=== PATIENT | male | born 1980 | race Caucasian/White ===

== ENCOUNTER 2024-03-17 15:25 | Outpatient (AMB) | payer OTHER, SELFPAY ==
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
[2024-03-17 15:37] VITALS: BP 141/92; PULSE 100; RESP 18; TEMP 36.6; O2SAT 96; BMI 31.5
== END 2024-03-17 17:05 | disposition home or self-care (01) ==
PROVIDERS: PCP Family Medicine; Visit Provider Family Medicine
DX: I10 Essential (primary) hypertension (principal); E83.119 Hemochromatosis, unspecified; F19.11 Other psychoactive substance abuse, in remission; F41.8 Other specified anxiety disorders; R21 Rash and other nonspecific skin eruption; F17.200 Nicotine dependence, unspecified, uncomplicated; S06.0XAA Concussion with loss of consciousness status unknown, initial encounter; V89.2XXA Person injured in unspecified motor-vehicle accident, traffic, initial encounter

== ENCOUNTER → 2024-03-17 15:25 | Outpatient (BNVA) | payer OTHER, SELFPAY | PROVIDERS: PCP Family Medicine; Visit Provider Family Medicine | DX: I10 Essential (primary) hypertension (principal); E83.119 Hemochromatosis, unspecified; F41.8 Other specified anxiety disorders; F19.11 Other psychoactive substance abuse, in remission; F17.200 Nicotine dependence, unspecified, uncomplicated; R21 Rash and other nonspecific skin eruption; S06.0XAA Concussion with loss of consciousness status unknown, initial encounter; V89.2XXA Person injured in unspecified motor-vehicle accident, traffic, initial encounter; Y93.9 Activity, unspecified; Y92.9 Unspecified place or not applicable; Y99.9 Unspecified external cause status | CPT/HCPCS: 96127 ==

== ENCOUNTER 2024-06-01 13:43 | Outpatient (REF) | payer OTHER, SELFPAY ==
[2024-06-01 15:11] LABS: MANUAL DIFF FLAG NO
[2024-06-01 15:42] LABS: Basophils Absolute Auto 0.1 X10*3/uL (0.0-0.2); Eosinophils Absolute Auto 0.3 X10*3/uL (0.0-0.4); Eosinophils Percent Auto 4.5 % (0-4); Hemoglobin 17.3 g/dl (14.0-18.0); Imm Gran Abs Auto 0.11 X10*3/uL (0.00-0.03); Imm Gran Pct Auto 1.5 % (0.0-0.4); Lymphocytes Absolute Auto 2.9 X10*3/uL (1.2-4.9); Mean Corpuscular Hemoglobin 40.9 pg (27.0-33.0); Mean Platelet Volume 9.7 fL (9.4-12.4); Monocytes Absolute Auto 0.6 X10*3/uL (0.1-1.2); Monocytes Percent Auto 7.9 % (2-11); Neutrophils Absolute Auto 3.2 x10*3/uL (2.0-8.3); Neutrophils Percent Auto 44.1 % (45-73); Platelet Count 251 X10*3/uL (160-400); Red Blood Count 4.23 X10*6/uL (4.60-5.80); Red Cell Distribution Width 12.8 % (11.0-16.0); White Blood Count 7.2 X10*3/uL (4.8-10.8)
[2024-06-01 15:47] LABS: Mean Corpuscular Volume 113.5 fL (80.0-98.0)
[2024-06-01 16:09] LABS: Alanine Aminotransferase 210 U/L (0-40); Albumin Level 3.8 g/dL (3.5-5.0); Anion Gap 14 (12-20); Aspartate Amino Transferase 410 U/L (5-37); Blood Urea Nitrogen 4 mg/dL (9-16); Calcium 8.3 mg/dL (8.4-10.2); Carbon Dioxide 24 mmol/L (22-29); Chloride 108 mmol/L (96-108); Cholesterol 172 mg/dL (<200); Estimated Glomerular Filt Rate > 60; Glucose Fasting 96 mg/dL (60-99); HDL Cholesterol 38 mg/dL (>40); Iron 156 mcg/dL (45-160); LDL Cholesterol Calculated 94 mg/dL (<100); Percent Iron Saturation 51 % (15-50); Potassium 3.6 mmol/L (3.3-5.1); Sodium 142 mmol/L (135-145); Total Iron Binding Capacity 308 mcg/dL (228-428); Triglycerides 204 mg/dL (<150); Unsaturated Iron Binding 152 ug/dL
[2024-06-01 16:10] LABS: Estimated Average Glucose 94 mg/dL; Hemoglobin A1C 135.8722 umol/L; Hemoglobin A1c % 4.9 % (<6.0); Total Hemoglobin (HGBA1C) 4482.2053 umol/L
[2024-06-01 16:25] LABS: Prostate Specific Antigen Scr 0.24 ng/mL (<0.05-4.0)
[2024-06-01 16:29] LABS: Alkaline Phosphatase 94 U/L (39-117); Ferritin 1487 ng/mL (20-250); TSH reflex Free T4 0.76 uIU/mL (0.32-4.0)
== END 2024-06-01 13:44 | disposition home or self-care (01) ==
LOC: HO.LAB 13:43
PROVIDERS: PCP Family Medicine; Visit Provider Family Medicine
DX: Z12.5 Encounter for screening for malignant neoplasm of prostate (principal)
CPT/HCPCS: 36415; 80053; 80061; 82728; 83036; 83540; 84153; 84443; 85025

== ENCOUNTER 2024-10-21 09:22 | Outpatient (REF) | payer OTHER, SELFPAY ==
[2024-10-21 11:28] LABS: MANUAL DIFF FLAG NO
[2024-10-21 11:52] LABS: Basophils Absolute Auto 0.1 X10*3/uL (0.0-0.2); Basophils Percent Auto 1.6 % (0-2); Eosinophils Absolute Auto 0.4 X10*3/uL (0.0-0.4); Eosinophils Percent Auto 4.4 % (0-4); Hematocrit 45.6 % (42.0-52.0); Hemoglobin 16.1 g/dl (14.0-18.0); Imm Gran Abs Auto 0.13 X10*3/uL (0.00-0.03); Imm Gran Pct Auto 1.6 % (0.0-0.4); Lymphocytes Absolute Auto 2.6 X10*3/uL (1.2-4.9); Lymphocytes Percent Auto 31.6 % (20-40); Mean Corpuscular HGB Conc 35.3 g/dl (31.0-36.0); Mean Platelet Volume 9.7 fL (9.4-12.4); Monocytes Absolute Auto 0.6 X10*3/uL (0.1-1.2); Monocytes Percent Auto 7.1 % (2-11); Neutrophils Absolute Auto 4.4 x10*3/uL (2.0-8.3); Neutrophils Percent Auto 53.7 % (45-73); Platelet Count 317 X10*3/uL (160-400); Red Blood Count 4.02 X10*6/uL (4.60-5.80); Red Cell Distribution Width 14.1 % (11.0-16.0); White Blood Count 8.1 X10*3/uL (4.8-10.8)
[2024-10-21 11:55] LABS: Mean Corpuscular Volume 113.4 fL (80.0-98.0)
[2024-10-21 12:55] LABS: Ferritin 1320 ng/mL (20-250)
[2024-10-21 13:02] LABS: Anion Gap 14 (12-20)
[2024-10-21 13:06] LABS: Alanine Aminotransferase 159 U/L (0-40); Albumin Level 3.9 g/dL (3.5-5.0); Alkaline Phosphatase 100 U/L (39-117); Aspartate Amino Transferase 233 U/L (5-37); Blood Urea Nitrogen 6 mg/dL (9-16); Calcium 8.9 mg/dL (8.4-10.2); Carbon Dioxide 29 mmol/L (22-29); Chloride 106 mmol/L (96-108); Estimated Glomerular Filt Rate > 60; Glucose Fasting 102 mg/dL (60-99); Iron 214 mcg/dL (45-160); Percent Iron Saturation 66 % (15-50); Potassium 3.7 mmol/L (3.3-5.1); Sodium 145 mmol/L (135-145); Total Iron Binding Capacity 326 mcg/dL (228-428); Unsaturated Iron Binding 112 ug/dL
[2024-10-21 14:54] LABS: Appearance Urine Turbid; Color Urine Dark Yellow; Glucose Urine UA Negative (Negative); Leukocyte Esterase Urine Negative (Negative); Nitrite Urine Negative (Negative); Specific Gravity - Urine 1.015 (1.005-1.025); Urine Blood Negative (Negative); Urine Ketones Negative (Negative); Urine Protein Trace mg/dL (Neg-Trace)
[2024-10-21 16:01] LABS: Creatinine Urine 174.97 mg/dL; Microalbum/Creatinine Ratio Ur 6.2 ug/mg cr (<30)
== END 2024-10-21 09:23 | disposition home or self-care (01) ==
LOC: HO.WFDLDS 09:22
PROVIDERS: Visit Provider Family Medicine
DX: Z00.00 Encounter for general adult medical examination without abnormal findings (principal); I10 Essential (primary) hypertension; E83.119 Hemochromatosis, unspecified
CPT/HCPCS: 36415; 80053; 81003; 82043; 82570; 82728; 83540; 85025

== ENCOUNTER 2024-10-24 15:46 | Outpatient (AMB) | payer OTHER, SELFPAY ==
--- NOTE | 2024-10-24 15:57 | A.OFFPC_ITS ---
Vital Signs 10/24/24 16:01 Height 5 ft 11 in Weight 218 lb 4 oz BMI 30.4 BP 132/70 Blood Pressure Location Rt brachial Position Sitting Respiration 16 Pulse 89 Pulse Source Pulse Oximeter Temp 98.2 F Temp Source Oral Pulse Oximetry (%) 98 Oxygen Delivery Method Room Air Intake Visit Reasons: Meds review Intake Note: Patient is scheduled for med review, so patient need labs for high iron, need medication readjusted. Allergies No Known Allergies Allergy (Verified 10/24/24 16:00) Tobacco use date assessed: 10/24/24 Dental Screening Dental Screen Date: 10/24/24 Did you have a dental visit in the last 12 months?: No Did you have a dental problem in the last 6 months where you did not have access to dental care?: No Was dental information given to patient?: No HPI Meds review HPI Details 43 y/o male presents to f/u [facility]. Had started him on losartan for hypertension. BP today 132/70, 89p. Labs drawn 10/21/24. Reviewed labs with pt. RBC mildly low at 4.02. Fasting glucose 102. Ferritin level 1320 ng/mL. AST 233. ALT 159. Notes hx of R ankle strain. He notes he feels it has been tightening up at night. [facility] Social History Housing: Condominium Patient Tobacco Use Status: Former Tobacco user e-Cigarette/Vaping Use: Never Used service: No Current occupational status: employed Current occupation: speech theraipist Current occupational exposures/hazards: No Cognitive needs: No Hearing needs: No Vision needs: Yes (need vision check) Questionnaire Thrive Questionnaire Date Thrive assessed: 05/27/24 I am a: Patient What is your living situation today?: I have a steady place to live Within the past 12 months, did the food you bought not last and you didn't have the money to get more?: Never true Within the past 12 months, did you worry whether your food would run out before you got money to buy more?: Never true Do you have trouble paying for medicines?: No Do you have trouble getting transportation to medical appointments?: No Do you have trouble paying your heating and electricity bill?: No Do you have trouble taking care of your child, family member or friend?: No Do you have trouble with day-to-day activities such as bathing, preparing meals, shopping, managing finances, etc.?: No Are you currently unemployed and looking for a job?: No Are you interested in more education?: No Please select the resources that you would like help with: None THRIVE Score: 0 CAMILO-7 AMB Questionnaire CAMILO-7 Date CAMILO - 7 assessed: 03/17/24 Source: Developed by Drs. Sven Meza, Iesha Torres, Kunal Dodson and colleagues, with an educational klever from [employer]. Review of Systems Const Denies chills, Denies fatigue, Denies fever(s), Denies headache(s) and Denies weakness ENT Denies dizziness and Denies headache(s) Card Denies dyspnea Resp Denies cough, Denies dyspnea, Denies wheezing and Denies other (shortness of breath) Musc Denies numbness and Denies tingling Neuro Denies dizziness, Denies headache(s), Denies numbness, Denies tingling and Denies weakness Psych Denies anxiety and Denies depression Endo Denies fatigue Aller/Immun Denies wheezing Physical exam (Primary Care) Vital Signs: Last Vital Signs Temp 98.2 F 10/24/24 16:01 Pulse 89 10/24/24 16:01 Resp 16 10/24/24 16:01 BP 132/70 10/24/24 16:01 Pulse Ox 98 10/24/24 16:01 Oxygen Delivery Method Room Air 10/24/24 16:01 BMI result Body Mass Index 30.4 Tobacco/Smoking Status: Tobacco use Status Tobacco use date assessed 10/24/24 10/24/24 16:06 Patient Tobacco Use Status Former Tobacco user 10/24/24 16:06 e-Cigarette/Vaping Use Never Used 10/24/24 16:06 Thrive Assessment: Date of Thrive Assessment Date Thrive assessed 05/27/24 10/24/24 16:06 Const General: well developed; No acute distress Nutritional Appearance: well nourished Orientation/consciousness: patient oriented x3 HENMT Head: Yes normocephalic and Yes atraumatic Eyes General: appearance normal, both eyes and all related structures Pupils: Equal, round and reactive pupils present EOM: EOMs intact bilaterally Resp Effort & Inspection: normal respiratory effort Neuro General: patient oriented x3 and gait normal Cranial nerves: Yes Equal, round and reactive pupils present Psych Affect: normal affect Coding Level of Care Code Est Pt Level 4 (49719) Diagnoses Hemochromatosis E83.119 Hypertension I10 Depression with anxiety F41.8 Abnormal EKG R94.31 Elevated liver enzymes R74.8 Right ankle pain M25.571 Assessment & Plan Assessment & Plan (1) Hemochromatosis: Code(s): E83.119 - Hemochromatosis, unspecified Category: Medical Plan: Iron?levels?consistent?with?hemochromatosis Liver?enzymes?are?high Referred?to?Gastroenterology EKG: ?Normal?sinus?rhythm, incomplete?right?bundle-branch?block, normal?axis no?hypertrophy, no?ST-T-wave?changes. Borderline?EKG. Will?check?echocardiogram (2) Hypertension: Code(s): I10 - Essential (primary) hypertension Category: Medical Plan: Blood?pressure?is?controlled.??Goal?is?less?than?140/90 Continue?losartan (3) Depression with anxiety: Code(s): F41.8 - Other specified anxiety disorders Category: Medical Plan: Patient?knows?that?bupropion?has?been?helping?but?the?evening?dose ?had?been?making?it?harder?for?him?to?sleep He?would?like?a?mild?increase?in?his?dose?for?the?morning?only. Will?give?him?a?script?for?bupropion?100?mg?daily?which?he?can?take?it. Follow-up?with?therapist (4) Abnormal EKG: Code(s): R94.31 - Abnormal electrocardiogram [ECG] [EKG] Category: Medical (5) Elevated liver enzymes: Code(s): R74.8 - Abnormal levels of other serum enzymes Category: Medical (6) Right ankle pain: Code(s): M25.571 - Pain in right ankle and joints of right foot Category: Medical Plan Patient?also?notes?some?right?ankle?and?calf?pain.??This?has?been?chronic?for?ye ars?after?to?grade?3?sprains He?was?concerned?regarding?DVT.??No?excess?swelling no?cords?palpated no?er ythema Reassured?patient?no?evidence?of?DVT?or?concerns?for?this. Offered?physical?therapy?for?what?is?likely?muscle?strain.??Patient?says?he?cont inue?exercises?he?is?already?aware?of. Orders: Orders CA echo transthoracic complete Today E83.119 - Hemochromatosis, unspecified, R94.31 - Abnormal electrocardiogram [ECG] [EKG] Referrals Gastroenterology Referral E83.119 - Hemochromatosis, unspecified, R74.8 - Abnormal levels of other serum enzymes Medications: Changed From bupropion HCl 75 mg PO BID 90 days 180 tabs 2RF To bupropion HCl 100 mg PO DAILY 90 days 90 tabs 2RF
[2024-10-24 16:01] VITALS: BP 132/70; PULSE 89; RESP 16; TEMP 36.8; O2SAT 98; BMI 30.4
== END 2024-10-24 16:53 | disposition home or self-care (01) ==
LOC: HO.HMCFM 15:47
PROVIDERS: PCP Family Medicine; Visit Provider Family Medicine
DX: E83.119 Hemochromatosis, unspecified (principal); I10 Essential (primary) hypertension; F41.8 Other specified anxiety disorders; R94.31 Abnormal electrocardiogram [ECG] [EKG]; R74.8 Abnormal levels of other serum enzymes; M25.571 Pain in right ankle and joints of right foot

== ENCOUNTER → 2024-10-24 15:46 | Outpatient (BNVA) | payer OTHER, SELFPAY | PROVIDERS: PCP Family Medicine; Visit Provider Family Medicine | DX: I10 Essential (primary) hypertension (principal); F32.A Depression, unspecified; E83.119 Hemochromatosis, unspecified; F41.8 Other specified anxiety disorders; R94.31 Abnormal electrocardiogram [ECG] [EKG]; R74.8 Abnormal levels of other serum enzymes; M25.571 Pain in right ankle and joints of right foot; Z79.899 Other long term (current) drug therapy | CPT/HCPCS: 99212 ==

== ENCOUNTER → 2024-11-23 12:45 | Outpatient (REF) | payer OTHER, SELFPAY ==
--- NOTE | 2024-11-23 12:48 | CA_ITS ---
Transthoracic Echocardiogram Patient (Last, First, Middle): Hardik Nicholson L Gender: Male Date of : 1980 Age: 43 Procedure Date: 11/23/2024 Procedure Type: Transthoracic Echocardiogram Location: OP Height: 180.34 cm Weight: 97.52 kg BSA: 2.17 m2 Heart Rate: 97 bpm BP: 132 / 70 mmHg Investigator Internal Revenue: SB Referring MD: Arpit Davila MD Mobile Manager: Nick Santana MD Symptoms: E83.119 - Hemochromatosis, unspecified Study Quality: Fair ECG Rhythm: Sinus Conclusions: - 1. Normal LV ejection fraction of 65-70% with mild asymmetric septal hypertrophy with impaired relaxation filling pattern 2. Normal cardiac valvular Dopplers 3. No gross pericardial effusion Findings Procedure Information The quality of the study was technically difficult. The study quality is limited by lung artifact. Left Ventricle Normal left ventricular size, thickness, and systolic function. The visually estimated ejection fraction is between 65-70%. Spectral Doppler is indicative of an impaired relaxation filling pattern. E/E prime ratio is between 8 and 15 consistent with indeterminate filling pressures. There is mild septal asymmetric hypertrophy. Peak GLS is -14.1%, which is moderately reduced. Right Ventricle Normal right ventricular cavity size and systolic function. Atria Both atria are normal in size. There is no evidence of interatrial shunt. Aortic Valve Normal aortic valve structure and function. There is no aortic valve stenosis. There is no aortic valve regurgitation. Mitral Valve Normal mitral valve structure and function. There is trace mitral valve regurgitation. There is no mitral valve stenosis. Pulmonic Valve The pulmonic valve was not well visualized. Tricuspid Valve Likely normal tricuspid valve structure and function. Tricuspid regurgitation envelope is inadequate for calculation of right ventricular systolic pressure. Normal right atrial pressure. Great Vessels The pulmonary artery was not well visualized. There is no dilatation of the ascending aorta measuring 3.40 cm. There is no evidence of plaque in the aorta. Venous The inferior vena cava is normal in size and collapses greater than 50% with inspiration. Pericardium/Pleural There is no evidence of pericardial effusion. Prior Study Comparison No prior study available for comparison. consider cardiac MRI Measurements 2D Linear Measurements IVSd: 1.43 0.6-0.9/0.6-1.0 cm LVIDd: 4.70 3.9-5.3/4.2-5.9 cm LVIDd Index: 2.17 2.4-3.2/2.2-3.1 cm/m2 LVIDs: 3.23 2.0-3.6 cm LVPWd: 0.92 0.7-1.1 cm LA Diam: 3.40 2.7-3.8/3.0-4.0 cm LAIDs Index: 1.57 1.5-2.3 cm/m2 LV Mass: 255.82 67-162/88-224 g LV Mass Index: 117.89 43-95/49-115 g/m2 LVOT Diam: 2.00 3.0+(-)1.3 cm 2D Systolic Function EF 4C: 67.00 >55% EF 2C: 72.40 >55% EF BiP: 70.00 >55% Mitral Valve MV Pk E: 0.77 MV PK A: 0.87 MV Decel Time: 184.00 E/A: 0.90 E'Lateral: 8.49 E'Medial: 6.74 E/E' Med: 11.40 E/E' Lat: 9.10 PHT: 54.00 MVA PHT: 4.07 Decel [place]: 4.20 Aortic Valve AoV Pk Terrance: 1.37 AoV Pk Grad: 8.00 TAMIKO: 3.18 LVOT LVOT Pk Terrance: 1.29 LVOT Mn Terrance: 1.02 LVOT VTI: 0.27 LVOT Pk Grad: 7.00 LVOT Mn Grad: 5.00 LVOT Diam: 2.00 LVOT Area: 3.14 Diastolic Function MV Pk E: 0.77 MV Pk A: 0.87 E/A: 0.90 E'Medial: 6.74 E/E' Med: 11.40 E' Laterial: 8.49 E/E' Lat: 9.10 Right Ventricle TAPSE (mm): 18.00 TVS' Terrance: 11.00 Tricuspid Valve RA Press: 8.00 Great Vessels Aorta Sinus of Valsalva: 3.70 2.0-3.5 cm Ao Asc: 3.40 2.1-3.4 cm Pulmonary Veins Pulm Vein S/D 1.30 Pulmonary Valve PV Pk Terrance: 1.07 Peak PV Grad: 5.00 Updated in Other Vendor System with Status of Final Nick Santana MD electronically signed on 11/23/2024 2:32:32 PM with status of Final
== END ==
LOC: HO.CARD 12:45
PROVIDERS: PCP Family Medicine; Visit Provider Family Medicine
DX: E83.119 Hemochromatosis, unspecified (principal); R94.31 Abnormal electrocardiogram [ECG] [EKG]
CPT/HCPCS: 93306

== ENCOUNTER → 2024-11-23 12:48 | Outpatient (BNV) | payer OTHER, SELFPAY | PROVIDERS: PCP Family Medicine; Visit Provider Internal Medicine Cardiovascular Disease | DX: I42.2 Other hypertrophic cardiomyopathy (principal); E83.119 Hemochromatosis, unspecified | CPT/HCPCS: 93306; 93356 ==

== ENCOUNTER 2024-11-30 10:32 | Outpatient (AMB) | payer OTHER, SELFPAY ==
--- NOTE | 2024-11-30 10:37 | MHC.PC.OV ---
Vital Signs 11/30/24 10:40 Height 5 ft 11 in Weight 224 lb BMI 31.2 BP 146/84 H Blood Pressure Location Rt brachial Position Sitting Respiration 16 Pulse 98 Pulse Source Pulse Oximeter Temp 98.1 F Temp Source Oral Pulse Oximetry (%) 98 Oxygen Delivery Method Room Air Intake Visit Reasons: f/u HTN, chronic conditions Intake Note: patient here for follow up on HTN and chronic conditions [employer]usement [employer] Worker Required: No Allergies No Known Allergies Allergy (Verified 11/30/24 10:39) Medication List - Last Reconciled 11/30/24 by Arpit Davila MD bupropion HCl 100 mg PO DAILY 90 days losartan 50 mg PO DAILY 30 days nicotine (polacrilex) (Nicorette) 2 mg buccal Q2H 28 days Tobacco use date assessed: 11/30/24 Dental Screening Dental Screen Date: 11/30/24 Did you have a dental visit in the last 12 months?: Yes Did you have a dental problem in the last 6 months where you did not have access to dental care?: No Was dental information given to patient?: Patient has dentist HPI f/u HTN, chronic conditions HPI Details 43 y/o male presents to f/u hypertension, anxiety/depression. Had sent him a script for bupropion 100mg daily. Blood pressure today 146/84, 98p. He is on losartan 50mg daily. Had incomplete RBBB, borderline EKG last office visit. Echocardiogram 11/23/24 showed: - 1. Normal LV ejection fraction of 65-70% with mild asymmetric septal hypertrophy with impaired relaxation filling pattern 2. Normal cardiac valvular Dopplers 3. No gross pericardial effusion Hemochromatosis. Has an upcoming GI appt. in January. HPI Comments History of Present Illness Details Documentation assistance for Arpit Davila MD, was provided by Goldy Wiseman,? Project Management Consultant on 11/30/2024 at 11:09 AM EST. I, Dr. Davila, have read, observed, and verified documentation. ?? PFSH Social History Housing: Condominium Patient Tobacco Use Status: Former Tobacco user e-Cigarette/Vaping Use: Never Used service: No Current occupational status: employed Current occupation: speech theraipist Current occupational exposures/hazards: No Cognitive needs: No Hearing needs: No Vision needs: Yes (need vision check) Questionnaire Thrive Questionnaire Date Thrive assessed: 05/27/24 I am a: Patient What is your living situation today?: I have a steady place to live Within the past 12 months, did the food you bought not last and you didn't have the money to get more?: Never true Within the past 12 months, did you worry whether your food would run out before you got money to buy more?: Never true Do you have trouble paying for medicines?: No Do you have trouble getting transportation to medical appointments?: No Do you have trouble paying your heating and electricity bill?: No Do you have trouble taking care of your child, family member or friend?: No Do you have trouble with day-to-day activities such as bathing, preparing meals, shopping, managing finances, etc.?: No Are you currently unemployed and looking for a job?: No Are you interested in more education?: No Please select the resources that you would like help with: None THRIVE Score: 0 CAMILO-7 AMB Questionnaire CAMILO-7 Date CAMILO - 7 assessed: 03/17/24 Source: Developed by Drs. Sven Meza, Iesha Torres, Kunal Dodson and colleagues, with an educational klever from [employer]. Review of Systems Const Denies chills, Denies fatigue, Denies fever(s), Denies headache(s) and Denies weakness ENT Denies dizziness and Denies headache(s) Card Denies dyspnea Resp Denies cough, Denies dyspnea, Denies wheezing and Denies other (shortness of breath) Musc Denies numbness and Denies tingling Neuro Denies dizziness, Denies headache(s), Denies numbness, Denies tingling and Denies weakness Psych Denies anxiety and Denies depression Endo Denies fatigue Aller/Immun Denies wheezing Physical exam (Primary Care) Vital Signs: Last Vital Signs Temp 98.1 F 11/30/24 10:40 Pulse 98 11/30/24 10:40 Resp 16 11/30/24 10:40 BP 146/84 H 11/30/24 10:40 Pulse Ox 98 11/30/24 10:40 Oxygen Delivery Method Room Air 11/30/24 10:40 BMI result Body Mass Index 31.2 Tobacco/Smoking Status: Tobacco use Status Tobacco use date assessed 11/30/24 11/30/24 10:43 Patient Tobacco Use Status Former Tobacco user 11/30/24 10:38 e-Cigarette/Vaping Use Never Used 11/30/24 10:38 Thrive Assessment: Date of Thrive Assessment Date Thrive assessed 05/27/24 11/30/24 10:38 Const General: well developed; No acute distress Nutritional Appearance: well nourished Orientation/consciousness: patient oriented x3 HENMT Head: Yes normocephalic and Yes atraumatic Eyes General: appearance normal, both eyes and all related structures Pupils: Equal, round and reactive pupils present EOM: EOMs intact bilaterally Resp Effort & Inspection: normal respiratory effort Neuro General: patient oriented x3 and gait normal Cranial nerves: Yes Equal, round and reactive pupils present Psych Affect: normal affect Coding Level of Care Code Est Pt Level 4 (70749) Diagnoses Hypertension I10 Asymmetric septal hypertrophy I51.7 Depression with anxiety F41.8 Hemochromatosis E83.119 Smoker F17.200 Assessment & Plan Assessment & Plan (1) Hypertension: Code(s): I10 - Essential (primary) hypertension Category: Medical Plan: Blood pressure is a little high He is taking losartan and I will increase the dose from 50 mg daily to 100 mg daily. (2) Asymmetric septal hypertrophy: Code(s): I51.7 - Cardiomegaly Category: Medical Plan: Echocardiogram shows asymmetric septal hypertrophy with mildly elevated EF and impaired relaxation. Referred to cardiology Controlling blood pressure as above (3) Depression with anxiety: Code(s): F41.8 - Other specified anxiety disorders Category: Medical Plan: Patient tried bupropion. He would like to discontinue this as he feels he is managing things his own at present. He will wean off of this and discussed weaning (4) Hemochromatosis: Code(s): E83.119 - Hemochromatosis, unspecified Category: Medical Plan: Following iron and ordered Therapeutic phlebotomy Referred him to Gastroenterology and he has an appointment in January. (5) Smoker: Code(s): F17.200 - Nicotine dependence, unspecified, uncomplicated Category: Social Hx Plan: Patient is working on quitting smoking He notes that the Nicorette gum is causing some increased acid production his stomach. He try Pepcid or Tums with this. Will let me know if he is still having difficulty. Orders: Orders Complete Blood Count Auto Diff Today E83.119 - Hemochromatosis, unspecified, Z00.00 - Encounter for general adult medical examination without abnormal findings IRON PROFILE Today E83.119 - Hemochromatosis, unspecified Therapeutic Phlebotomy Today E83.119 - Hemochromatosis, unspecified [address]. Panel Fast Today E83.119 - Hemochromatosis, unspecified, Z00.00 - Encounter for general adult medical examination without abnormal findings Referrals Cardiology Referral E83.119 - Hemochromatosis, unspecified, I51.7 - Cardiomegaly Medications: Changed From losartan 50 mg PO DAILY 30 days 30 tabs 3RF To losartan 100 mg PO DAILY 30 tabs 3RF 30 days
[2024-11-30 10:40] VITALS: BP 146/84; PULSE 98; RESP 16; TEMP 36.7; O2SAT 98; BMI 31.2
== END 2024-11-30 11:23 | disposition home or self-care (01) ==
LOC: HO.HMCFM 10:33
PROVIDERS: PCP Family Medicine; Visit Provider Family Medicine
DX: I10 Essential (primary) hypertension (principal); I51.7 Cardiomegaly; F41.8 Other specified anxiety disorders; E83.119 Hemochromatosis, unspecified; F17.200 Nicotine dependence, unspecified, uncomplicated

== ENCOUNTER → 2024-11-30 10:32 | Outpatient (BNVA) | payer OTHER, SELFPAY | PROVIDERS: PCP Family Medicine; Visit Provider Family Medicine | DX: I11.9 Hypertensive heart disease without heart failure (principal); F41.8 Other specified anxiety disorders; E83.119 Hemochromatosis, unspecified; F17.200 Nicotine dependence, unspecified, uncomplicated | CPT/HCPCS: 99212 ==